=== PATIENT | male | born 2000 | race Asian ===

== ENCOUNTER 2022-04-08 15:40 | Outpatient (CLI) | payer MEDICAID ==
[2022-04-08 19:21] LABS: BASOPHILS % (AUTO) 0.3 %; EOSINOPHILS % (AUTO) 0.7 %; HCT - HEMATOCRIT 43.6 % (42.0-52.0); HGB - HEMOGLOBIN 15.3 g/dL (14.0-18.0); LYMPHOCYTES # (AUTO) 1.8 10^3/uL (1.5-3.5); LYMPHOCYTES % (AUTO) 30.2 %; MEAN CORPUSCULAR HEMOGLOBIN 27.9 pg (27.0-31.0); MEAN CORPUSCULAR HGB CONC 35.1 g/dL (32.0-36.0); MEAN CORPUSCULAR VOLUME 79.4 fL (80.0-94.0); MEAN PLATELET VOLUME 10.1 fL (7.4-11.4); MONOCYTES # (AUTO) 0.5 10^3/uL (0.0-1.0); MONOCYTES % (AUTO) 8.1 %; NEUTROPHILS # (AUTO) 3.5 10^3/uL (1.5-6.6); NEUTROPHILS % (AUTO) 60.5 %; PLT - PLATELET COUNT 196 10^3/uL (130-450); RED BLOOD COUNT 5.49 10^6/uL (4.70-6.10); RED CELL DISTRIBUTION WIDTH 12.5 % (12.0-15.0); WHITE BLOOD COUNT 5.8 x10^3/uL (4.8-10.8)
[2022-04-08 19:33] LABS: ALBUMIN 4.9 g/dL (3.2-5.5); ALBUMIN/GLOBULIN RATIO 1.8 (1.0-2.2); BILIRUBIN,TOTAL 0.5 mg/dL (0.2-1.0); CALCIUM 9.5 mg/dL (8.5-10.3); CREATININE 0.9 mg/dL (0.6-1.2); POTASSIUM 4.2 mmol/L (3.5-5.0); TOTAL PROTEIN 7.7 g/dL (6.7-8.2)
== END 2022-04-08 15:41 | disposition home or self-care (01) ==
LOC: LAB.N 15:40
PROVIDERS: ATTEND Physician Assistant
DX: Z22.7 Latent tuberculosis (principal); Z51.81 Encounter for therapeutic drug level monitoring
CPT/HCPCS: 36415; 80053; 85025

== ENCOUNTER 2022-08-18 19:14 | Emergency (ER) | payer MEDICAID ==
[2022-08-18 19:47] VITALS: BP 126/53
--- NOTE | 2022-08-18 20:59 | ED Physician Documentation ---
History of Present Illness - Stated complaint Stated Complaint: BIG TOES PAIN - Chief complaint Chief Complaint: General - Additonal information Additional information: 22-year-old male here for dressing change on both his great toes. He did have a right great nail ingrown excision completed about 10 days ago. 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 He showered this evening and the bandage got wet. The patient was fearful to change it at home. He also had surgery on the left great toe where they did a bone shaving. This dressing appears to be dry and has a normal amount of what I would describe is postoperative serous drainage. It does not appear wet from the shower and I will defer changing this bandage today History is obtained from patient. Good historian Review of Systems Constitutional: denies: Fever PD PAST MEDICAL HISTORY - Allergies Allergies/Adverse Reactions: Allergies Allergy/AdvReac Type Severity Reaction Status Date / Time No Known Drug Allergies Allergy Verified 08/18/22 19:41 PD ED PE EXPANDED - Extremities Extremities: Left foot (Left great toe has blue Coban over gauze. Small amount of dried serous drainage on the bandage. No active drainage.), Right toe(s) (Right great toe has both the medial and lateral nail beds that are excised. No swelling or erythema. Small amount of bloody serous drainage from the nailbed. No worrisome tenderness) Results - Vitals Vitals: Vital Signs - 24 hr 08/18/22 19:41 Temperature 36.9 C Heart Rate 76 Respiratory 16 Rate Blood Pressure 126/53 L O2 Saturation 99 Oxygen O2 Source Room air PD Medical Decision Making - ED course Complexity details: d/w patient ED course: 22-year-old male here for dressing change to his right great toe as it got wet in the shower after recent nail excision for an ingrown nail. This dressing was easily changed. The wound itself appears to have no findings suggestive of infection or inflammation. I deferred changing the dressing of the left great toe as that bandage was not wet from the shower and his 911 operator is changing it once a week in the office. Clinically the patient has no fevers or worrisome pain and I did not feel that evaluation of the wound bed was important or necessary at this juncture As clinically the patient is not behaving as though there is an infection here Departure - Departure Disposition: 01 Home, Self Care Clinical Impression: Change of dressing Condition: Stable Record reviewed to determine appropriate education?: Yes Comments: You were seen today in the emergency department because your right great toe kavita ssing got wet in a shower. You did have ingrown toenail resection recently. We simply change the bandage on your right great toe. The wound itself appears to be healing well with no findings of infection. The dressing on your left great toe was not changed as it was not wet from the shower. The drainage that is on the bandage appears normal for a postoperative course. Reasons I would be concerned about the dressing would be if you develop any sudden severe pain, develop fevers to have swelling of the foot or red streaking.
== END 2022-08-18 21:15 | disposition home or self-care (01) ==
LOC: ED 19:14
DX: Z48.01 Encounter for change or removal of surgical wound dressing (principal)
CPT/HCPCS: 99281; 99282

== ENCOUNTER 2022-12-06 08:00 | Outpatient (CLI) | payer BC, MEDICAID ==
--- NOTE | 2022-12-06 13:03 | XRAY Report ---
PROCEDURE: Finger(s) RT INDICATIONS: CRUSHING INJURY TO RIGHT LITTLE FINGER TECHNIQUE: AP hand, 2 views of the fifth finger(s) acquired. COMPARISON: None. FINDINGS: Bones: No fractures or dislocations. No suspicious bony lesions. Soft tissues: No suspicious soft tissue calcifications or masses. IMPRESSION: No acute bony abnormality. Reviewed by: Kristopher Torres on 12/06/2022 12:02 PM CHEN Approved by: Kristopher Torres on 12/06/2022 12:02 PM CHEN Station ID: [id number]
== END 2022-12-06 23:59 | disposition home or self-care (01) ==
LOC: DI.S 08:00
PROVIDERS: ATTEND Physician Assistant Medical
DX: S67.196A Crushing injury of right little finger, initial encounter (principal)

== ENCOUNTER 2022-12-06 21:03 | Emergency (ER) | payer BC, MEDICAID ==
[2022-12-06] MEDS ORDERED: BUFFERED LIDOCAINE 10 ML SYRINGE SUBQ STA (21:16)
--- NOTE | 2022-12-06 21:17 | ED Physician Documentation ---
PD HPI UPPER EXT INJURY - Stated complaint Stated Complaint: R FINGER INJ - Chief complaint Chief Complaint: Ext Problem - History obtained from History obtained from: Patient - Additonal information Additional information: Yesterday at work he crushed his right small finger between 2 pieces of metal. He received L&I paperwork that says he cannot go back to work but he is feeling much better and would like to go back to work. He already had an x-ray that was negative at the walk-in clinic. PD PAST MEDICAL HISTORY - Past Surgical History Past Surgical History: Yes - Present Medications Home Medications: Ambulatory Orders Medication Instructions Recorded Confirmed No Known Home Medications 12/06/22 12/06/22 - Allergies Allergies/Adverse Reactions: Allergies Allergy/AdvReac Type Severity Reaction Status Date / Time No Known Drug Allergies Allergy Verified 12/06/22 21:09 - Social History Does the pt smoke?: No Smoking Status: Never smoker Does the pt drink ETOH?: No Does the pt have substance abuse?: No - Immunizations Immunizations are current?: Yes - POLST Patient has POLST: No PD ED PE NORMAL - Vitals Vital signs reviewed: Yes - General General: Alert and oriented X 3, No acute distress - Extremities Extremities: Other (Swollen but minimally tender at the tip of the right small finger with a 80% subungual hematoma.) - Neuro Neuro: Alert and oriented X 3, Normal speech Results - Vitals Vitals: Vital Signs - 24 hr 12/06/22 21:05 Temperature 36.6 C Heart Rate 70 Respiratory 17 Rate Blood Pressure 137/75 H O2 Saturation 100 Oxygen O2 Source Room air PD Medical Decision Making - ED course ED course: X-rays from yesterday reviewed, negative for fracture. After verbal informed consent the right fifth finger was blocked with buffered lidocaine and then the nail trephinated with return of blood. He tolerated this very well. Departure - Departure Disposition: 01 Home, Self Care Clinical Impression: Crushed finger Qualifiers: Encounter type: initial encounter Qualified Code(s): S67.10XA - Crushing injury of unspecified finger(s), initial encounter Subungual hematoma of finger of right hand Qualifiers: Encounter type: initial encounter Qualified Code(s): S60.10XA - Contusion of unspecified finger with damage to nail, initial encounter Condition: Good Record reviewed to determine appropriate education?: Yes Instructions: ED Crush Injury Finger No Fx Comments: Return as needed for new or worsening symptoms. Forms: Activity restrictions
[2022-12-06 21:46] VITALS: BP 132/68
== END 2022-12-06 21:45 | disposition home or self-care (01) ==
LOC: ED 21:03
DX: S67.196A Crushing injury of right little finger, initial encounter (principal); W23.1XXA Caught, crushed, jammed, or pinched between stationary objects, initial encounter; Y99.0 Civilian activity done for income or pay
CPT/HCPCS: 11740; 99283

== ENCOUNTER 2023-02-21 08:00 | Outpatient (CLI) | payer BC, MEDICAID, OTHER ==
[2023-02-21 20:07] LABS: H. PYLORIS ANTIGEN STL NEGATIVE (Negative)
== END 2023-02-21 23:59 | disposition home or self-care (01) ==
LOC: LAB 08:00
PROVIDERS: ATTEND Physician Assistant
DX: R10.13 Epigastric pain (principal)
CPT/HCPCS: 87045; 87046; 87177; 87338; 87427

== ENCOUNTER 2023-03-14 21:50 | Outpatient (CLI) | payer BC, MEDICAID ==
--- NOTE | 2023-03-15 09:48 | Ultrasound Report ---
PROCEDURE: Abdomen Complete INDICATIONS: EPIGASTRIC ABDOMINAL PAIN TECHNIQUE: Real-time scanning was performed of the abdominal and retroperitoneal organs, with image documentatio n. COMPARISON: None. FINDINGS: Liver: Liver is normal in size and homogeneous in echotexture. Gallbladder: Unremarkable. Biliary ducts: Intrahepatic bile ducts are non-dilated. Extrahepatic bile duct caliber measures 2.9 mm. Normal is 6-7 mm or less in diameter, or 10 mm or less post-cholecystectomy. Pancreas: Visualized portions of the pancreas are sonographically normal. Spleen: Spleen is normal in size and homogeneous in echotexture. Kidneys: Kidneys are normal in size and echotexture. Right kidney measures 11.3 cm long; left kidne y measures 11.9 cm long. No hydronephrosis or nephrolithiasis. No solid masses. No complex renal cy stic lesions which require follow-up. Aorta: Visualized aorta is normal in caliber at less than 3 cm. Iliacs: Proximal common iliac arteries are normal in caliber at less than 2.5 cm. IVC: Intrahepatic inferior vena cava is patent. IMPRESSION: No cause for patient's symptoms is identified. Normal abdominal ultrasound. Reviewed by: Christian Briggs MD on 03/15/2023 9:47 AM PDT Approved by: Christian Briggs MD on 03/15/2023 9:47 AM PDT Station ID: [id number]
== END 2023-03-14 21:51 | disposition home or self-care (01) ==
LOC: DI 21:50
PROVIDERS: ATTEND Physician Assistant
DX: R10.13 Epigastric pain (principal)

== ENCOUNTER 2023-08-06 08:29 | Day surgery (SDC) | payer BC, MEDICAID ==
[2023-08-06] MEDS ORDERED: LACTATED RINGERS 1,000 ML IV ONE (08:34)
[2023-08-06] MEDS ORDERED: ceFAZolin 2 GM VIAL ONE (08:41)
--- NOTE | 2023-08-06 09:47 | ANESTHESIA ---
Pre-Anesthesia VS, & Labs - Diagnosis penile lesion - Procedure revision circumcision, excision penile mole Vital Signs: Temp Pulse Resp BP Pulse Ox O2 Flow Rate 36.5 C 57 L 16 131/72 H 98 0 08/06/23 08:49 08/06/23 08:49 08/06/23 08:49 08/06/23 08:49 08/06/23 08:49 08/06/23 08:49 Height: 5 ft 11 in Weight (kg): 76 kg Body Mass Index: 23.3 BMI Classification: Normal - NPO >8 hours - Lab Results Lab results reviewed: Yes Home Medications and Allergies Home Medications: Ambulatory Orders Ibuprofen 200 mg PO Q6HR 08/03/23 Ibuprofen 200 mg PO Q6HR 08/03/23 Allergies/Adverse Reactions: Allergies Allergy/AdvReac Type Severity Reaction Status Date / Time No Known Drug Allergies Allergy Verified 12/06/22 21:09 Anes History & Medical History - Anesthetic History Anesthesia Complications: reports: No previous complications Family history of Anesthesia Complications: Denies Family history of Malignant Hyperthermia: Denies - Medical History Cardiovascular: reports: None Pulmonary: reports: None Gastrointestinal: reports: None Urinary: reports: None Musculoskeletal: reports: None Endocrine/Autoimmune: reports: None Skin: reports: None Smoking Status: Never smoker - Surgical History Eyes Ears Nose Throat (EENT): reports: Tonsil/Adenoidectomy Orthopedic: reports: Other (toe surgery) Exam General: Alert, Oriented x3, Cooperative Dental: WNL Mouth Openin Fingerbreadth Neck Mobility: Normal Mallampati classification: II Thyromental Distance: 4-6 cm Respiratory: Lungs clear, Normal breath sounds, No respiratory distress Cardiovascular: Regular rate Neurological: Normal speech Mental/Cognitive Status: Alert/Oriented X3, Normal for patient Cognitive Status: Within normal limits Plan Anesthesia Type: Total IV Consent for Procedure(s) Verified and Reviewed: Yes Code Status: Attempt Resuscitation ASA classification: 2-Mild systemic disease Is this case an emergency?: No
[2023-08-06] MEDS ORDERED: LIDOCAINE-MPF 1% 30 ML VIAL ONE (10:11)
[2023-08-06] MEDS ORDERED: BACITRACIN ZINC OINT 1 PACKET TOP ONE (10:11)
[2023-08-06] MEDS ORDERED: BUPIVACAINE 0.5% PF 10 ML VIAL ONE (10:12)
[2023-08-06] MEDS ORDERED: MIDAZOLAM 2 MG/2 ML VIAL ONE (10:22)
[2023-08-06] MEDS ORDERED: LIDOCAINE-PF 2% 10 ML AMP SUBQ ONE (10:23)
[2023-08-06] MEDS ORDERED: fentaNYL 100 MCG/2 ML VIAL ONE (10:23)
[2023-08-06] MEDS ORDERED: PROPOFOL 200 MG/20 ML VIAL IVP ONE ×3 (10:23→11:17)
[2023-08-06] MEDS ORDERED: LIDOCAINE-MPF 1% 2 ML AMP SUBQ ONE ×2 (10:29)
[2023-08-06] MEDS ORDERED: BUPIVACAINE 0.5% PF 10 ML VIAL SUBQ ONE ×2 (10:29)
[2023-08-06] MEDS ORDERED: BACITRACIN ZINC OINT 14 GM TOP ONE (10:30)
[2023-08-06] MEDS ORDERED: FLUMAZENIL 0.1 MG/1 ML 5 ML MDV IVP ONE (10:53)
[2023-08-06] MEDS ORDERED: ONDANSETRON 4 MG/2 ML VIAL ONE (10:56)
[2023-08-06] MEDS ORDERED: DEXAMETHASONE 4 MG/ML VIAL ONE (10:56)
[2023-08-06] MEDS ORDERED: ONDANSETRON 4 MG/2 ML VIAL IVP PRN (11:44)
[2023-08-06] MEDS ORDERED: HYDROcod/ACETAM 5/325 MG TABLET PO PRN (11:44)
--- NOTE | 2023-08-06 11:49 | Discharge Plan ---
Discharge Plan Problem Reviewed?: Yes Disposition: Home, Self Care Condition: Good Prescriptions: Docusate Sodium 100Mg Capsule [Colace 100Mg Capsule] 100 mg PO DAILY #7 cap HYDROcod/ACETAM 5/325 [Waldwick 5/325] 1 tab PO Q4H PRN #10 tablet PRN Reason: Pain Ondansetron Odt [Zofran Odt] 4 mg TL Q6H PRN #6 tablet PRN Reason: Nausea / Vomiting Diet: Regular Activity Restrictions: Additional Comments (as instructed) Shower Restrictions: No (ok to shower tomorrow. No soaking in water (bathing) for one week) Driving Restrictions: No Instruction Topics: Circumcision Adult No Smoking: If you smoke, Please STOP! Call for help. Follow-up with: Qiana Chowdary PA [Primary Care Provider] - Kevin Sanon MD [Provider Admit Priv/Credential] -
[2023-08-06] MEDS ORDERED: LACTATED RINGERS 250 ML IV ONE (11:52)
--- NOTE | 2023-08-06 11:53 | OPERATIVE REPORT ---
Operative Report - General Procedure Date: 08/06/23 Planned Procedure: Revision circumcision and penile mole removal Pre-Op Diagnosis: Incomplete circumcision and penile mole Procedure Performed: Revision circumcision and penile mole removal Post Op Diagnosis: Incomplete circumcision and penile mole - Procedure Note Primary Surgeon: Fab Anesthesia Provider: DIXON Vasques Anesthesia Technique: Moderate sedation Pathology: foreskin penile mole Estimated Blood Loss (mL): 2 Findings: Three quarters circumferential circumcision performed starting at 5 o'clock position to 1:00 in a clockwise fashion in order to remove atypical pockets and skin bridges Right base small mole Complications: none - Other Other Information/Narrative: After informed consent was obtained the patient was brought to the OR and laid in the supine position. That point time the patient was anesthetized per anesthesia protocols and prepped and draped in usual sterile fashion. A formal timeout was performed reconfirming the patient and procedure. He was noted to have multiple skin bridges at the line of his prior circumcision going from the 5 o'clock position to the 1 o'clock position in a circumferential clockwise fashion. These bridges may little pockets where tissue and debris could accumulate. He also had a small 2 mm mole which was dark on his right penile base. Local was instilled as a penile block and ring block with half percent Marcaine and 1% lidocaine. The skin tissue comprising the skin bridges was excised. A minimal amount of skin was removed in order to allow the future skin edges come together easily. This was sent for analysis as foreskin. Spot cautery was used for hemostasis. The skin was closed using a simple interrupted 3-0 chromic suture. A small ellipse of skin was used to remove the mole which was then closed using simple interrupted 3-0 chromic suture. A Band-Aid was placed over the mole incision. The circumcision incision was covered with bacitracin and Xeroform and gauze. This concluded the procedure the patient tolerated procedure well was brought to PACU without further incident. All counts were correct. He will follow-up in 4 to 6 weeks time
--- NOTE | 2023-08-06 11:58 | ANESTHESIA POST OP EVALUATION ---
Anesthesia Post Eval - Post Anesthesia Eval Vitals: Last Vital Signs Temp 36.5 C 08/06/23 08:49 Pulse 57 L 08/06/23 08:49 Resp 16 08/06/23 08:49 BP 131/72 H 08/06/23 08:49 Pulse Ox 98 08/06/23 08:49 O2 Flow Rate 0 08/06/23 08:49 CV Function Including HR & BP: Stable Pain Control: Satisfactory Nausea & Vomiting: Negative Mental Status: Baseline Respiratory Status: Airway Patent Hydration Status: Satisfactory Anesthesia Complications: None
[2023-08-06 12:42] VITALS: BP 124/83; O2SAT 100
== END 2023-08-06 08:30 | disposition home or self-care (01) ==
LOC: SDS 08:29
PROVIDERS: ATTEND Urology
PROC: 0VTTXZZ Resection of Prepuce, External Approach (ICD-10-PCS; principal; 2023-08-06 10:00)
PROC: 0HBAXZZ Excision of Inguinal Skin, External Approach (ICD-10-PCS; 2023-08-06 10:00)
DX: N47.8 Other disorders of prepuce (principal); L81.4 Other melanin hyperpigmentation; Z72.0 Tobacco use
CPT/HCPCS: 11420; 54163; A9270; J7120

== ENCOUNTER 2024-02-21 18:42 | Emergency (ER) | payer OTHER, BC ==
[2024-02-21 18:50] VITALS: O2SAT 100
--- NOTE | 2024-02-21 19:08 | ED Physician Documentation ---
History of Present Illness - Stated complaint Stated Complaint: RT HAND INJ - Chief complaint Chief Complaint: Ext Problem - History obtained from History obtained from: Patient - History of Present Illness Timing: How many days ago (2) - Additonal information Additional information: Patient is a 23-year-old male who presents to the emergency department with rig ht hand pain. About 2 days ago patient cut his third digit on his right hand stuck in a car. He notes shortly after he obtained a subungual hematoma. He drained it yesterday and had some mild relief and drainage from the area. He notes he continues to have persistent pain and swelling to the distal tip of his right third digit. He feels it is more swollen today than yesterday. PD PAST MEDICAL HISTORY - Past Medical History Past Medical History: No Cardiovascular: None Respiratory: None Neuro: None Endocrine/Autoimmune: None GI: None : None HEENT: None Psych: None Musculoskeletal: None Derm: None - Past Surgical History Past Surgical History: Yes Ortho: Other HEENT: Tonsil/Adenoidectomy - Present Medications Home Medications: Ambulatory Orders Medication Instructions Recorded Confirmed No Known Home Medications 02/21/24 02/21/24 - Allergies Allergies/Adverse Reactions: Allergies Allergy/AdvReac Type Severity Reaction Status Date / Time No Known Drug Allergies Allergy Verified 02/21/24 18:50 - Social History Does the pt smoke?: No Smoking Status: Never smoker Does the pt drink ETOH?: No Does the pt have substance abuse?: No - Immunizations Immunizations are current?: No Immunizations: TDAP >10years/unknown - POLST Patient has POLST: No PD ED PE NORMAL - Vitals Vital signs reviewed: Yes - General General: Alert and oriented X 3 - HEENT HEENT: Atraumatic, PERRL - Neck Neck: Supple, no meningeal sign - Cardiac Cardiac: RRR, No murmur, No gallop, No rub - Respiratory Respiratory: No respiratory distress - Abdomen Abdomen: Normal bowel sounds - Derm Derm: Normal color, No rash - Extremities Extremities: Other (Right hand third digit distal tip does show erythema with subungual hematoma 100% of the nail with significant swelling to distal portion of third digit. Decreased flexion of DIP joint however full range at PIP and MCP joint of third digit. Finger opposition intact.) - Free text exam Free text exam: Radial pulse 2+ no pain on palpation of proximal or middle phalynx of right third digit. < 3 seconds capillary refill Results - Vitals Vitals: Vital Signs - 24 hr 02/21/24 18:44 Temperature 37.0 C Heart Rate 74 Respiratory 15 Rate Blood Pressure 146/71 H O2 Saturation 100 Oxygen O2 Source Room air - Rads (name of study) X-ray right third digit Relevant Findings:: EMP independent interpretation of test PD Medical Decision Making - ED course Complexity details: reviewed old records, reviewed results Departure - Departure Disposition: 01 Home, Self Care Clinical Impression: Sprain of right middle finger, Subungual hematoma of right middle finger Condition: Good Instructions: ED Sprain Finger Comments: Your workup here in the emergency department was reassuring no acute fracture you were given a splint for right third digit and you should take ibuprofen 800 mg every 8 hours to ensure resolution of symptoms. Watch for any worsening swelling redness warmth any fevers or unable to flex or ectend finger. Return to the ED with these symptoms. Forms: PCP List
--- NOTE | 2024-02-21 19:25 | XRAY Report ---
PROCEDURE: Finger(s) RT INDICATIONS: Trauma TECHNIQUE: AP hand, 2 views of the third finger(s) acquired. COMPARISON: 12/06/2022 FINDINGS: Bones: No fractures or dislocations. No suspicious bony lesions. Soft tissues: No suspicious soft tissue calcifications or masses. IMPRESSION: No acute bony abnormality. Reviewed by: Kristopher Torres MD on 02/21/2024 7:24 PM PDT Approved by: Kristopher Torres MD on 02/21/2024 7:24 PM PDT Station ID: [id number]
[2024-02-21 20:16] VITALS: BP 132/68
== END 2024-02-21 20:16 | disposition home or self-care (01) ==
LOC: ED 18:42
DX: S63.612A Unspecified sprain of right middle finger, initial encounter (principal); S60.131A Contusion of right middle finger with damage to nail, initial encounter; W23.1XXA Caught, crushed, jammed, or pinched between stationary objects, initial encounter
CPT/HCPCS: 99283

== ENCOUNTER 2024-02-23 15:23 | Emergency (ER) | payer OTHER, BC ==
[2024-02-23 15:41] VITALS: BP 130/72; O2SAT 100
--- NOTE | 2024-02-23 17:17 | ED Physician Documentation ---
History of Present Illness - Stated complaint Stated Complaint: RT HAND PX - Chief complaint Chief Complaint: Ext Problem - Additonal information Additional information: Patient is a 23-year-old male who presents to the emergency department with right finger pain. Patient reports he was seen here 2 days ago and was evaluated for subungual hematoma and possible fracture. He was given a splint and no signs of fracture was noted on x-ray. Patient has been wearing the splint but notes worsening swelling to his right finger. Patient denies any worsening trauma he notes swelling has progressively gotten worse. He denies any fevers no discharge from the wound. Subungual hematoma has now improved as well. Area of swelling is noted along the paronychia region. PD PAST MEDICAL HISTORY - Past Medical History Past Medical History: No Cardiovascular: None Respiratory: None Neuro: None Endocrine/Autoimmune: None GI: None : None HEENT: None Psych: None Musculoskeletal: None Derm: None - Past Surgical History Past Surgical History: Yes Ortho: Other HEENT: Tonsil/Adenoidectomy - Present Medications Home Medications: Ambulatory Orders Medication Instructions Recorded Confirmed No Known Home Medications 02/21/24 02/21/24 - Allergies Allergies/Adverse Reactions: Allergies Allergy/AdvReac Type Severity Reaction Status Date / Time No Known Drug Allergies Allergy Verified 02/23/24 15:34 - Social History Does the pt smoke?: No Smoking Status: Never smoker Does the pt drink ETOH?: No Does the pt have substance abuse?: No - Immunizations Immunizations are current?: No Immunizations: TDAP >10years/unknown - POLST Patient has POLST: No PD ED PE NORMAL - Vitals Vital signs reviewed: Yes - General General: Alert and oriented X 3 - HEENT HEENT: Atraumatic - Cardiac Cardiac: RRR, No gallop - Respiratory Respiratory: No respiratory distress - Extremities Extremities: Other Results - Vitals Vitals: Vital Signs - 24 hr 02/23/24 15:34 Temperature 36.7 C Heart Rate 77 Respiratory 16 Rate Blood Pressure 130/72 O2 Saturation 100 Oxygen O2 Source Room air PD Medical Decision Making - ED course Complexity details: reviewed old records ED course: Patient is a 23-year-old male presenting to the emergency department after being seen 2 days ago for finger sprain and subungual hematoma to right third digit. Patient notes swelling has developed around paronychia region to right middle finger. He is instructed to return to ED with any worsening swelling he is so he comes back to the emergency department today. He has wrapped the finger but only to the middle phalanx. He has not been wrapping the distal phalanx due to concerns for pain with compression. There is noticeably new fluctuance on palpation around paronychia region. Subungual hematomas in place patient continues to have good sensation and full range of motion intact. Good capillary refill. Discussed with patient given findings symptoms most likely a small hematoma surrounding paronychia as he has not been wrapping it or providing compression to the distal phalanx. Due to pain and swelling to region will drain the hematoma here in the emergency department to help with patient's symptoms. Hematoma drained with success discussed with patient on importance of wrapping distal phalanx to prevent recurrence and to ensure good nail and wound healing. Patient rewrapped here with finger splint and compression to distal phalanx. He will watch for any worsening swelling fevers severe pain and return to the emergency department with any of the symptoms. Instructed patient to continue wearing splint to prevent further injury he understands and is agreeable with this plan. Departure - Departure Disposition: 01 Home, Self Care Clinical Impression: Hematoma, Subungual hematoma of finger, Sprain of right middle finger, Subungual hematoma of right middle finger Condition: Good Comments: Your hematoma was drained here in emergency department continue to provide compression to the area watch for any worsening swelling redness warmth fevers to the area as this could be signs of infection. Return to the emergency department with any new or worsening symptoms. Follow-up with PCP in outpatient setting. Continue to provide compression to prevent recurrence.
== END 2024-02-23 17:49 | disposition home or self-care (01) ==
LOC: ED 15:23
DX: S60.131A Contusion of right middle finger with damage to nail, initial encounter (principal); S63.612A Unspecified sprain of right middle finger, initial encounter; L03.011 Cellulitis of right finger; X58.XXXA Exposure to other specified factors, initial encounter
CPT/HCPCS: 10160